=== PATIENT | female | born 1925 | race Caucasian/White ===

== ENCOUNTER 2016-07-21 09:55 | Emergency (ER) | payer MEDICARE ==
[2016-07-21] MEDS ORDERED: SODIUM CHLORIDE 0.9% 1,000 ML IV STA (10:49)
--- NOTE | 2016-07-21 10:53 | ED ---
General Adult HPI <Irwin Mccann - Last Filed: 07/21/16 13:49> - General Source: patient, RN notes reviewed Mode of arrival: wheelchair Limitations: physical limitation <Jovana Larios - Last Filed: 07/21/16 18:44> - General Chief complaint: Fall Stated complaint: weakness Time Seen by Provider: 07/21/16 10:05 - History of Present Illness Initial comments: Patient is a 89-year-old female since emergency room for evaluation of fall. Patient's daughter is present with patient. Patient's daughter states that patient is been very unsteady over the past 2-3 weeks. Patient's daughter states that patient did fall backwards yesterday and hit her head. Patient denies feeling dizzy lightheaded before the incident. Patient states she is randomly felt backwards. Patient states she did hit the back of her head. Patient denies loss of consciousness. Patient denies any current headache today. Patient's daughter states they called patient's primary care provider and they were advised to come to the emergency room to be further evaluated. Patient states she has a history of [place] about 9 years ago and history of a stroke about 3 years ago. Patient denies any residual symptoms from stroke. Patient denies any current increasing weakness or unilateral weakness. Patient denies paresthesias. Patient denies headache, dizziness, neck pain, changes in vision, ear pain, ringing in ears, chest pain, shortness of breath, nausea, vomiting, abdominal pain, fevers, chills, pain or burning during urination, trouble urinating or blood in urine. Patient denies any current symptoms at the moment. Patient denies smoking, drinking or illicit drug use. Patient denies any new medications. (Jovana Larios) - Related Data Home Medications Medication Instructions Recorded Confirmed Aspirin 81 mg PO HS 08/31/15 07/21/16 Atorvastatin [Lipitor] 40 mg PO HS 08/31/15 07/21/16 Jagdishacidoph,Marco B.lactis 1 cap PO DAILY 08/31/15 07/21/16 [Probiotic] Brimonidine Tartrate/Timolol 1 drop BOTH EYES AC-BID 09/01/15 07/21/16 [Combigan 0.2%-0.5% Eye Drops] Latanoprost [Xalatan 0.005%] 1 drop BOTH EYES HS 09/01/15 07/21/16 Biotin 5 mg PO DAILY@1200 07/21/16 07/21/16 Brinzolamide [Azopt 1% Ophth Susp] 1 drop RIGHT EYE BID 07/21/16 07/21/16 Cholecalciferol (Vitamin D3) 2,000 unit PO AC-TID 07/21/16 07/21/16 [Vitamin D3] Cyanocobalamin (Vitamin B-12) 3,000 mcg PO DAILY 07/21/16 07/21/16 [Vitamin B-12] Docusate [Colace] 100 mg PO AC-BID 07/21/16 07/21/16 Ferrous Sulfate [Feosol] 325 mg PO AC-BID 07/21/16 07/21/16 Hydrochlorothiazide 25 mg PO DAILY 07/21/16 07/21/16 [Hydrochlorothiazide] Lisinopril [Zestril] 10 mg PO AC-BID 07/21/16 07/21/16 cloNIDine HCL [Catapres] 0.1 mg PO TID 07/21/16 07/21/16 hydrALAZINE HCL [Apresoline] 100 mg PO TID 07/21/16 07/21/16 Previous Rx's Medication Instructions Recorded Insulin Glargine,Hum.rec.anlog 18 unit SQ HS #0 09/27/15 [Lantus Solostar] amLODIPine [Norvasc] 10 mg PO HS tab 09/27/15 Cephalexin [Keflex] 500 mg PO Q6HR 7 Days 07/21/16 Allergies Allergy/AdvReac Type Severity Reaction Status Date / Time Sulfa (Sulfonamide Allergy Rash/Hives Verified 07/21/16 11:14 Antibiotics) Review of Systems ROS Other: All systems not noted in ROS Statement are negative. <Irwin Mccann - Last Filed: 07/21/16 13:49> ROS Other: All systems not noted in ROS Statement are negative. <Jovana Larios - Last Filed: 07/21/16 18:44> ROS Statement: Those systems with pertinent positive or pertinent negative responses have been documented in the HPI. 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,URINARY TRACT INFECTION Last Myocardial Infarction Date:: 2008 History of Any Multi-Drug Resistant Organisms: None Reported Past Surgical History: Bladder Surgery, Bowel Resection, Coronary Bypass/CABG, Joint Replacement, Tubal Ligation Additional Past Surgical History / Comment(s): LEFT LEG SURGERY -TIBIA AND KNEE , TOTAL LEFT KNEE, CATARACT SURGERY- BILATERAL ,BMT, PARATHYROID,BLADDER SURGERY X3 (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) Past Anesthesia/Blood Transfusion Reactions: No Reported Reaction Past Psychological History: No Psychological Hx Reported Smoking Status: Never smoker Past Alcohol Use History: None Reported Past Drug Use History: None Reported - Past Family History Daughter(s) Family Medical History: Cancer Additional Family Medical History / Comment(s): BREAST CANCER <Jovana Larios - Last Filed: 07/21/16 18:44> General Exam <Irwin Mccann - Last Filed: 07/21/16 13:49> Limitations: physical limitation General appearance: alert, in no apparent distress Head exam: Present: atraumatic, normocephalic, normal inspection Eye exam: Present: normal appearance, PERRL, EOMI Pupils: Present: normal accommodation ENT exam: Present: normal exam, mucous membranes moist, TM's normal bilaterally , normal external ear exam Neck exam: Present: normal inspection, full ROM. Absent: tenderness, lymphadenopathy Respiratory exam: Present: normal lung sounds bilaterally. Absent: respiratory distress Cardiovascular Exam: Present: regular rate, normal rhythm, normal heart sounds GI/Abdominal exam: Present: soft, normal bowel sounds. Absent: distended, tenderness, guarding, rebound, rigid Extremities exam: Present: normal inspection Back exam: Present: normal inspection Neurological exam: Present: alert, oriented X3, CN II-XII intact Expanded Patient oriented to: Present: person, place, time Speech: Present: fluid speech Cranial nerves: EOM's Intact: Normal, Facial Sensation: Normal Sensory exam: Upper Extremity Light Touch: Normal, Lower Extremity Light Touch: Normal Motor strength exam: RUE: 5, LUE: 5, RLE: 5, LLE: 5 Eye Response: (4) open spontaneously Motor Response: (6) obeys commands Verbal Response: (5) oriented Psychiatric exam: Present: normal affect, normal mood Skin exam: Present: warm, dry, normal color, other (Abrasion from dog scratching her left leg over anterior reed). Absent: rash <Jovana Larios - Last Filed: 07/21/16 18:44> - General Exam Comments Initial Comments: Sitting in exam room, no acute distress. (Jovana Larios) Course <Irwin Mccann - Last Filed: 07/21/16 13:49> <Jovana Larios - Last Filed: 07/21/16 18:44> Vital Signs 07/21/16 07/21/16 09:57 14:03 Temperature 97.9 F 97.1 F L Pulse Rate 52 L 46 L Respiratory 16 18 Rate Blood Pressure 177/78 191/79 O2 Sat by Pulse 98 99 Oximetry - Reevaluation(s) Reevaluation #1: 07/21/16 13:49 I did personally do a [id number] evaluation the patient did discuss findings with her and her family members. He does demonstrate evidence of dehydration as well as a urinary tract infection she also has a wound on her left leg is slowly healing from an abrasion she received from her dog when it jumped up on her. She is awake alert oriented 3 no acute distress. Dry oral mucosa. Left lower extremity demonstrates a healing wound with some minimal erythema about the edges. Is approximately 2.5 cm diameter. Patient will be placed on a structure increase fluids and antibiotics. I do agree with the assessment and plan. (Irwin Mccann) Medical Decision Making - Lab Data Result diagrams: 07/21/16 10:13 07/21/16 10:13 <Irwin Mccann - Last Filed: 07/21/16 13:49> - Lab Data Result diagrams: 07/21/16 10:13 07/21/16 10:13 <Jovana Larios - Last Filed: 07/21/16 18:44> - Lab Data Lab Results 07/21/16 07/21/16 07/21/16 Range/Units 10:13 10:13 10:13 WBC 5.3 (3.8-10.6) k/uL RBC 3.41 L (3.80-5.40) m/uL Hgb 10.8 L (11.4-16.0) gm/dL Hct 32.8 L (34.0-46.0) % MCV 96.3 (80.0-100.0) fL MCH 31.6 (25.0-35.0) pg MCHC 32.8 (31.0-37.0) g/dL RDW 13.0 (11.5-15.5) % Plt Count 182 (150-450) k/uL Neutrophils % 68 % Lymphocytes % 19 % Monocytes % 7 % Eosinophils % 3 % Basophils % 1 % Neutrophils # 3.6 (1.3-7.7) k/uL Lymphocytes # 1.0 (1.0-4.8) k/uL Monocytes # 0.4 (0-1.0) k/uL Eosinophils # 0.1 (0-0.7) k/uL Basophils # 0.0 (0-0.2) k/uL PT (9.0-12.0) sec INR (<1.1) APTT (22.0-30.0) sec Sodium 139 (137-145) mmol/L Potassium 5.0 (3.5-5.1) mmol/L Chloride 105 (98-107) mmol/L Carbon Dioxide 25 (22-30) mmol/L Anion Gap 9 mmol/L BUN 51 H (7-17) mg/dL Creatinine 1.52 H (0.52-1.04) mg/dL Est GFR (MDRD) Af Amer 39 (>60 ml/min/1.73 sqM) Est GFR (MDRD) Non-Af 32 (>60 ml/min/1.73 sqM) Glucose 148 H (74-99) mg/dL Calcium 10.3 H (8.4-10.2) mg/dL Magnesium 2.2 (1.6-2.3) mg/dL Total Bilirubin 0.6 (0.2-1.3) mg/dL AST 22 (14-36) U/L ALT 27 (9-52) U/L Alkaline Phosphatase 77 (38-126) U/L Total Creatine Kinase 81 (30-135) U/L CK-MB (CK-2) 0.3 (0.0-2.4) ng/mL CK-MB (CK-2) Rel Index 0.4 Troponin I <0.012 (0.000-0.034) ng/mL Total Protein 6.5 (6.3-8.2) g/dL Albumin 3.6 (3.5-5.0) g/dL Urine Color Urine Appearance (Clear) Urine pH (5.0-8.0) Ur Specific [place] (1.001-1.035) Urine Protein (Negative) Urine Glucose (UA) (Negative) Urine Ketones (Negative) Urine Blood (Negative) Urine Nitrite (Negative) Urine Bilirubin (Negative) Urine Urobilinogen (<2.0) mg/dL Ur Leukocyte Esterase (Negative) Urine RBC (0-5) /hpf Urine WBC (0-5) /hpf Ur Squamous Epith Cells (0-4) /hpf Urine Bacteria (None) /hpf Hyaline Casts (0-2) /lpf Urine Mucus (None) /hpf 07/21/16 07/21/16 Range/Units 10:13 11:09 WBC (3.8-10.6) k/uL RBC (3.80-5.40) m/uL Hgb (11.4-16.0) gm/dL Hct (34.0-46.0) % MCV (80.0-100.0) fL MCH (25.0-35.0) pg MCHC (31.0-37.0) g/dL RDW (11.5-15.5) % Plt Count (150-450) k/uL Neutrophils % % Lymphocytes % % Monocytes % % Eosinophils % % Basophils % % Neutrophils # (1.3-7.7) k/uL Lymphocytes # (1.0-4.8) k/uL Monocytes # (0-1.0) k/uL Eosinophils # (0-0.7) k/uL Basophils # (0-0.2) k/uL PT 9.7 (9.0-12.0) sec INR 0.9 (<1.1) APTT 22.2 (22.0-30.0) sec Sodium (137-145) mmol/L Potassium (3.5-5.1) mmol/L Chloride (98-107) mmol/L Carbon Dioxide (22-30) mmol/L Anion Gap mmol/L BUN (7-17) mg/dL Creatinine (0.52-1.04) mg/dL Est GFR (MDRD) Af Amer (>60 ml/min/1.73 sqM) Est GFR (MDRD) Non-Af (>60 ml/min/1.73 sqM) Glucose (74-99) mg/dL Calcium (8.4-10.2) mg/dL Magnesium (1.6-2.3) mg/dL Total Bilirubin (0.2-1.3) mg/dL AST (14-36) U/L ALT (9-52) U/L Alkaline Phosphatase (38-126) U/L Total Creatine Kinase (30-135) U/L CK-MB (CK-2) (0.0-2.4) ng/mL CK-MB (CK-2) Rel Index Troponin I (0.000-0.034) ng/mL Total Protein (6.3-8.2) g/dL Albumin (3.5-5.0) g/dL Urine Color Yellow Urine Appearance Cloudy H (Clear) Urine pH 5.5 (5.0-8.0) Ur Specific [place] 1.011 (1.001-1.035) Urine Protein 2+ H (Negative) Urine Glucose (UA) Negative (Negative) Urine Ketones Negative (Negative) Urine Blood Negative (Negative) Urine Nitrite Positive H (Negative) Urine Bilirubin Negative (Negative) Urine Urobilinogen <2.0 (<2.0) mg/dL Ur Leukocyte Esterase Negative (Negative) Urine RBC 2 (0-5) /hpf Urine WBC 5 (0-5) /hpf Ur Squamous Epith Cells 2 (0-4) /hpf Urine Bacteria Moderate H (None) /hpf Hyaline Casts 1 (0-2) /lpf Urine Mucus Rare H (None) /hpf Disposition <Irwin Mccann - Last Filed: 07/21/16 13:49> Time of Disposition: 13:39 <Jovana Larois - Last Filed: 07/21/16 18:44> Clinical Impression: Urinary tract infection, Fall Disposition: HOME SELF-CARE Condition: Good Instructions: Urinary Tract Infection in Women (ED), Fall Prevention for Older Adults (ED) Additional Instructions: Take antibiotics as directed. Drink plenty of water. Please follow up with primary care provider in 24-48 hours for reevaluation. If any new symptom arises or symptoms worsen, return to ER as soon as possible. Prescriptions: Cephalexin [Keflex] 500 mg PO Q6HR 7 Days Referrals: Doug Mcmillan DO [Primary Care Provider] - 1-2 days
[2016-07-21 11:08] LABS: Basophils % (A) 1 %; CH 32.3; CHCM 33.7; Eosinophils # (A) 0.1 k/uL (0-0.7); Eosinophils % (A) 3 %; HCT 32.8 % (34.0-46.0); HDW 2.54; HGB 10.8 gm/dL (11.4-16.0); Luc # (Auto) 0.14; Luc % (Auto) 3; Lymphocytes % (A) 19 %; MCH 31.6 pg (25.0-35.0); MCHC 32.8 g/dL (31.0-37.0); MCV 96.3 fL (80.0-100.0); Mean Platelet Volume 7.6; Monocytes # (A) 0.4 k/uL (0-1.0); Monocytes % (A) 7 %; Neutrophils # (A) 3.6 k/uL (1.3-7.7); Neutrophils % (A) 68 %; RBC 3.41 m/uL (3.80-5.40); WBC 5.3 k/uL (3.8-10.6); WBC (Perox) 5.61
[2016-07-21 11:26] LABS: INR 0.9 (<1.1); Partial Thromboplastin Time 22.2 sec (22.0-30.0); Prothrombin Time 9.7 sec (9.0-12.0)
[2016-07-21 11:29] LABS: Calcium 10.3 mg/dL (8.4-10.2); Magnesium 2.2 mg/dL (1.6-2.3); Total Bilirubin 0.6 mg/dL (0.2-1.3); Total Protein 6.5 g/dL (6.3-8.2)
[2016-07-21 11:35] LABS: Creatine Kinase 81 U/L (30-135)
[2016-07-21 11:47] LABS: Creatine Kinase MB 0.3 ng/mL (0.0-2.4); Troponin I <0.012 ng/mL (0.000-0.034)
[2016-07-21 12:02] LABS: Appearance,Urine Cloudy (Clear); Bacteria,Urine Moderate /hpf; Bilirubin,Urine Negative (Negative); Glucose,Urine (UA) Negative (Negative); Ketones,Urine Negative (Negative); Leukocyte Esterase,Urine Negative (Negative); Mucus,Urine Rare /hpf; Nitrite,Urine Positive (Negative); PH, Urine 5.5 (5.0-8.0); Particle Count 49718; Protein,Urine 2+ (Negative); RBC,Urine 2 /hpf (0-5); Specific Gravity,Urine 1.011 (1.001-1.035); Squamous Epithelial Cell,Urine 2 /hpf (0-4); UA Billing (MACRO vs. MICRO) MICRO; Urobilinogen,Urine <2.0 mg/dL (<2.0); WBC,Urine 5 /hpf (0-5)
--- NOTE | 2016-07-21 12:05 | CT ---
EXAMINATION TYPE: CT brain arcadio ware DATE OF EXAM: 07/21/2016 COMPARISON: NONE HISTORY: [place] CT DLP: 1364.[address] of the brain was performed. The ventricles, basal cisterns and sulci overlying the cerebral convexities demonstrate mild enlargem ent. There is no evidence for intracranial hemorrhage or sulcal effacement. There is decreased attenuatio n about the periventricular white matter and deep white matter of both cerebral hemispheres, compatib le with chronic small vessel ischemia. No mass effects are seen. If symptoms persist consider MRI. Osseous calvarium is intact. Complete opacification left maxillary sinus with internal hyperdensity seen and calcification. IMPRESSION: 1. Age related atrophic and chronic small vessel ischemic change without acute intracranial process seen at this time. CT Cervical Spine: Unenhanced CT of the cervical spine was performed with bone and soft tissue window settings submitted . Coronal and sagittal reconstruction is obtained. There is normal alignment and prevertebral soft tissues. No evidence for acute cervical fracture . Scattered degenerative disc disease and spondylosis. Biapical scarring. Thyroid nodularity seen. At heromatous change of the carotid vessels. IMPRESSION: 1. No evidence for acute fracture or subluxation of the cervical spine.
[2016-07-21 14:06] VITALS: BP 191/79; PULSE 46; RESP 18; TEMP 97.1
== END 2016-07-21 14:08 | disposition home or self-care (01) ==
LOC: EC 09:55
DX: S81.802A Unspecified open wound, left lower leg, initial encounter (principal); N39.0 Urinary tract infection, site not specified; I25.10 Atherosclerotic heart disease of native coronary artery without angina pectoris; E78.5 Hyperlipidemia, unspecified; I10 Essential (primary) hypertension; I25.2 Old myocardial infarction; M19.90 Unspecified osteoarthritis, unspecified site; Z79.82 Long term (current) use of aspirin; Z79.899 Other long term (current) drug therapy; Z88.2 Allergy status to sulfonamides; Z86.69 Personal history of other diseases of the nervous system and sense organs; W01.10XA Fall on same level from slipping, tripping and stumbling with subsequent striking against unspecified object, initial encounter
CPT/HCPCS: 99284; 96365; 96361 ×3; 36415; 93005; 80053; 82550; 82553; 83735; 84484; 85025; 85610; 85730; 81001; 72125; 70450; J0696

== ENCOUNTER → 2017-04-25 | Outpatient (CLI) | payer MEDICARE ==
[2017-04-25 17:44] LABS: HCT 32.1 % (34.0-46.0); HGB 10.5 gm/dL (11.4-16.0); MCH 30.7 pg (25.0-35.0); MCHC 32.6 g/dL (31.0-37.0); MCV 93.9 fL (80.0-100.0); Mean Platelet Volume 7.7; Platelet Count 182 k/uL (150-450); RBC 3.42 m/uL (3.80-5.40); RDW 13.1 % (11.5-15.5); WBC 6.9 k/uL (3.8-10.6)
[2017-04-25 18:21] LABS: Albumin 3.6 g/dL (3.5-5.0); Calcium 10.4 mg/dL (8.4-10.2); Potassium 4.3 mmol/L (3.5-5.1); Total Bilirubin 0.2 mg/dL (0.2-1.3); Total Protein 6.4 g/dL (6.3-8.2)
== END | disposition home or self-care (01) ==
LOC: LABWHC1 17:16
PROVIDERS: ATTEND Internal Medicine Interventional Cardiology
DX: I10 Essential (primary) hypertension (principal); Z95.1 Presence of aortocoronary bypass graft
CPT/HCPCS: 36415; 80053; 85027

== ENCOUNTER 2017-08-09 17:06 | Inpatient (IN) | payer MEDICARE ==
[2017-08-09] MEDS ORDERED: DIPH,PERTUS(ACELL)TETVAC-LF 0.5 ML VIAL IM ONE (18:17)
[2017-08-09] MEDS ORDERED: ONDANSETRON 4 MG/2 ML VIAL IVP STA (18:17)
[2017-08-09 18:22] LABS: Basophils % (A) 0 %; Eosinophils # (A) 0.1 k/uL (0-0.7); Eosinophils % (A) 1 %; HCT 31.8 % (34.0-46.0); HGB 10.4 gm/dL (11.4-16.0); Lymphocytes # (A) 1.1 k/uL (1.0-4.8); Lymphocytes % (A) 6 %; MCH 30.9 pg (25.0-35.0); MCHC 32.9 g/dL (31.0-37.0); Mean Platelet Volume 7.4; Monocytes # (A) 0.9 k/uL (0-1.0); Monocytes % (A) 5 %; Neutrophils # (A) 16.4 k/uL (1.3-7.7); Neutrophils % (A) 87 %; Platelet Count 151 k/uL (150-450); RBC 3.38 m/uL (3.80-5.40); RDW 13.4 % (11.5-15.5); WBC 18.8 k/uL (3.8-10.6)
--- NOTE | 2017-08-09 18:26 | ED ---
Fever HPI - General Chief Complaint: Fever Stated Complaint: POSS INFECTION IN LEFT LEG Time Seen by Provider: 08/09/17 17:58 Source: patient, RN notes reviewed Mode of arrival: wheelchair Limitations: no limitations - History of Present Illness Initial Comments: 89-year-old female presented emergency Department chief complaint of left leg pain, swelling or redness. Patient states that she woke up today with a fever and the pain to her leg. She did admit that she was at by a cat on Sunday. Patient states that she believes her tetanus was updated approximate 7 years ago. Patient states that she has not taken any recent, Motrin for fever. She states her leg is severely painful. Patient states pain radiates up. Patient admits being a diabetic she admits to current nausea but denies any chest pain, shortness breath, headache or dizziness. - Related Data Home Medications Medication Instructions Recorded Confirmed Aspirin 81 mg PO HS 08/31/15 08/09/17 Atorvastatin [Lipitor] 40 mg PO HS 08/31/15 08/09/17 Brimonidine Tartrate/Timolol 1 drop BOTH EYES AC-BID 09/01/15 08/09/17 [Combigan 0.2%-0.5% Eye Drops] Latanoprost [Xalatan 0.005%] 1 drop BOTH EYES HS 09/01/15 08/09/17 Brinzolamide [Azopt 1% Ophth Susp] 1 drop BOTH EYES BID 07/21/16 08/09/17 Cholecalciferol (Vitamin D3) 2,000 unit PO AC-TID 07/21/16 08/09/17 [Vitamin D3] Cyanocobalamin (Vitamin B-12) 1,000 mcg PO DAILY 07/21/16 08/09/17 [Vitamin B-12] Docusate [Colace] 100 mg PO AC-BID 07/21/16 08/09/17 Ferrous Sulfate [Feosol] 325 mg PO AC-BID 07/21/16 08/09/17 cloNIDine HCL [Catapres] 0.1 mg PO BID 07/21/16 08/09/17 hydrALAZINE HCL [Apresoline] 100 mg PO BID@08,12 07/21/16 08/09/17 Chlorthalidone 25 mg PO DAILY 08/09/17 08/09/17 Insulin Glargine,Hum.rec.anlog 14 unit SQ HS 08/09/17 08/09/17 [Lantus Solostar] Isosorbide Mononitrate ER [Imdur] 30 mg PO DAILY 08/09/17 08/09/17 Ketorolac Tromethamine [Acular 1 drop BOTH EYES TID 08/09/17 08/09/17 0.5%] Lisinopril [Zestril] 20 mg PO BID 08/09/17 08/09/17 Pantoprazole [Protonix] 40 mg PO DAILY 08/09/17 08/09/17 sitaGLIPtin [Januvia] 25 mg PO DAILY 08/09/17 08/09/17 Previous Rx's Medication Instructions Recorded amLODIPine [Norvasc] 10 mg PO HS tab 09/27/15 Allergies Allergy/AdvReac Type Severity Reaction Status Date / Time Sulfa (Sulfonamide Allergy Rash/Hives Verified 08/09/17 18:44 Antibiotics) Review of Systems ROS Statement: Those systems with pertinent positive or pertinent negative responses have been documented in the HPI. ROS Other: All systems not noted in ROS Statement are negative. 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, KIDNEY INSUFFICENCY,NI[place]OLSKI LEFT EAR,URINARY TRACT INFECTION Last Myocardial Infarction Date:: 2008 History of Any Multi-Drug Resistant Organisms: None Reported Past Surgical History: Bladder Surgery, Bowel Resection, Coronary Bypass/CABG, Joint Replacement, Tubal Ligation Additional Past Surgical History / Comment(s): LEFT LEG SURGERY -TIBIA AND KNEE , TOTAL LEFT KNEE, CATARACT SURGERY- BILATERAL ,BMT, PARATHYROID,BLADDER SURGERY X3 (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 Absent: respiratory distress, wheezes, rales, rhonchi, stridor Cardiovascular Exam: Present: regular rate, normal rhythm, normal heart sounds. Absent: systolic murmur, diastolic murmur, rubs, gallop, clicks Extremities exam: Present: other (Left lower extremity there is erythema from her ankle to her knee there are some areas of ecchymosis no leg is moderately tender with palpation pulses are equal bilaterally there is warmth the left leg) Skin exam: Present: warm, dry Course Vital Signs 08/09/17 17:27 Temperature 99.7 F H Pulse Rate 93 Respiratory 18 Rate Blood Pressure 157/71 O2 Sat by Pulse 98 Oximetry Medical Decision Making - Medical Decision Making 89-year-old female presents emergency from for left leg pain, swelling and redness. Patient has infected leg secondary to Light. Patient will be admitted to the hospital on Zosyn and vancomycin. Patient's tetanus was updated. Laboratory did reveal leukocytosis x-ray does not reveal any gas formation. - Lab Data Result diagrams: 08/09/17 18:13 08/09/17 18:13 Lab Results 08/09/17 08/09/17 08/09/17 Range/Units 18:13 18:13 18:13 WBC 18.8 H (3.8-10.6) k/uL RBC 3.38 L (3.80-5.40) m/uL Hgb 10.4 L (11.4-16.0) gm/dL Hct 31.8 L (34.0-46.0) % MCV 94.0 (80.0-100.0) fL MCH 30.9 (25.0-35.0) pg MCHC 32.9 (31.0-37.0) g/dL RDW 13.4 (11.5-15.5) % Plt Count 151 (150-450) k/uL Neutrophils % 87 % Lymphocytes % 6 % Monocytes % 5 % Eosinophils % 1 % Basophils % 0 % Neutrophils # 16.4 H (1.3-7.7) k/uL Lymphocytes # 1.1 (1.0-4.8) k/uL Monocytes # 0.9 (0-1.0) k/uL Eosinophils # 0.1 (0-0.7) k/uL Basophils # 0.0 (0-0.2) k/uL Sodium 134 L (137-145) mmol/L Potassium 4.4 (3.5-5.1) mmol/L Chloride 100 (98-107) mmol/L Carbon Dioxide 23 (22-30) mmol/L Anion Gap 11 mmol/L BUN 54 H (7-17) mg/dL Creatinine 2.30 H (0.52-1.04) mg/dL Est GFR (CKD-EPI)AfAm 21 (>60 ml/min/1.73 sqM) Est GFR (CKD-EPI)NonAf 18 (>60 ml/min/1.73 sqM) Glucose 279 H (74-99) mg/dL Plasma Lactic Acid Wilian 1.7 (0.7-2.0) mmol/L Calcium 10.4 H (8.4-10.2) mg/dL Total Bilirubin 0.5 (0.2-1.3) mg/dL AST 18 (14-36) U/L ALT 27 (9-52) U/L Alkaline Phosphatase 64 (38-126) U/L Total Protein 5.7 L (6.3-8.2) g/dL Albumin 3.3 L (3.5-5.0) g/dL Disposition Clinical Impression: Left leg cellulitis, Infected cat bite Disposition: ADMITTED IP TO THIS HOSP Condition: Stable Referrals: Hortencia Strong MD [Primary Care Provider] - 1-2 days
[2017-08-09] MEDS ORDERED: ACETAMINOPHEN TAB 325 MG TAB PO STA (18:38)
[2017-08-09 18:39] LABS: Albumin 3.3 g/dL (3.5-5.0); Calcium 10.4 mg/dL (8.4-10.2); Potassium 4.4 mmol/L (3.5-5.1); Total Bilirubin 0.5 mg/dL (0.2-1.3); Total Protein 5.7 g/dL (6.3-8.2)
[2017-08-09] MEDS ORDERED: PIPERACILLIN-TAZOBACTAM 3.375 GM in DEXTROSE/WATER 1 50ML.BAG IVPB STA (19:00)
--- NOTE | 2017-08-09 19:05 | XR ---
EXAMINATION TYPE: XR tibia fibula LT DATE OF EXAM: 08/09/2017 COMPARISON: NONE HISTORY: Leg redness and swelling TECHNIQUE: 4 views FINDINGS: There is a left knee prosthesis. Ankle mortise is anatomic. I see no fracture nor dislocati on. There is a plantar calcaneal spur. There is vascular calcification. IMPRESSION: No acute abnormality of the left tibia and fibula.
[2017-08-09] MEDS ORDERED: VANCOMYCIN IV PER PHARMACY 1 EACH MISC MISCELLANE PRN (19:11)
[2017-08-09] MEDS ORDERED: VANCOMYCIN 1,250 MG in SODIUM CHLORIDE 0.9% 250 ML IVPB STA (19:18)
[2017-08-09] MEDS ORDERED: ACETAMINOPHEN TAB 325 MG TAB PO PRN (19:22)
[2017-08-09] MEDS ORDERED: ONDANSETRON 4 MG/2 ML VIAL IVP PRN (19:22)
[2017-08-09] MEDS ORDERED: NALOXONE 0.4 MG/ML 1 ML VIAL IV PRN (19:22)
[2017-08-09 21:03] LABS: Glucose,Whole Blood 246 mg/dL (75-99)
[2017-08-09 21:20] VITALS: BMI 24.0
[2017-08-09] MEDS: ASPIRIN 81 MG PO SCH (22:27)
[2017-08-09] MEDS: amLODIPine 10 MG TAB PO SCH (22:28)
[2017-08-09] MEDS: ATORVASTATIN 40 MG TAB PO SCH (22:28)
[2017-08-09] MEDS: cloNIDine HCL 0.1 MG TAB PO SCH (22:28)
[2017-08-09] MEDS: INSULIN DETEMIR 100 UNIT/ML 10 ML VIAL SQ SCH (22:28)
[2017-08-09] MEDS: LISINOPRIL 20 MG TAB PO SCH (22:28)
[2017-08-09] MEDS: LATANOPROST 0.005% OPHTH DROPS 2.5 ML BTL BOTH EYES SCH (22:29)
[2017-08-09] MEDS: DORZOLAMIDE HCL 2% DROPS 10 ML BTL BOTH EYES SCH (22:30)
[2017-08-09 22:45] LABS: Glucose,Whole Blood 284 mg/dL (75-99)
[2017-08-09] MEDS ORDERED: HYDROcodone/APAP 5-325MG 1 EACH TAB PO PRN (23:16)
[2017-08-09] MEDS ORDERED: ALPRAZolam 0.25 MG TAB PO PRN (23:16)
[2017-08-09] MEDS: INSULIN ASPART 100 UNIT/ML 1 ML 10 ML VIAL SQ SCH (23:36)
[2017-08-09] MEDS: AMPICILLIN-SULBACTAM 3 GM in SODIUM CHLORIDE 0.9% 100 ML IVPB SCH (23:59)
[2017-08-09] MEDS: MELATONIN 3 MG TABLET PO SCH (23:59)
[2017-08-09] MEDS: KETOROLAC 0.5% OPHTH DROPS 5 ML BTL BOTH EYES SCH (23:59)
[2017-08-10] MEDS ORDERED: PIPERACILLIN-TAZOBACTAM 3.375 GM in DEXTROSE/WATER 1 50ML.BAG IVPB SCH (03:00)
[2017-08-10 06:07] LABS: Glucose,Whole Blood 67 mg/dL (75-99)
--- NOTE | 2017-08-10 06:14 | HP ---
HISTORY AND PHYSICAL CHIEF COMPLAINTS: Pain and swelling of the left leg. HISTORY OF PRESENT ILLNESS: This 89-year-old woman with a past medical history of CAD, CHF, CVA, TIA, diabetes mellitus type 2, hearing hypertension, hyperlipidemia, being followed by primary physician in the [place] area was bitten by her own cat on Sunday on the left leg. The patient had increasing pain and swelling and patient came to [facility] and admitted for further evaluation. X-rays are normal. There is history of some fever. Otherwise no rigors, chills. No history of headache, loss of consciousness, seizures. PAST MEDICAL HISTORY: CAD, CHF, CVA, TIA, diabetes mellitus, hypertension, hyperlipidemia, history of bladder surgery. MEDICATIONS: Medications prior to admission include home medications are: 1. Nitrofurantoin 100 mg p.o. b.i.d. 2. Januvia 25 mg p.o. daily. 3. Apresoline 100 mg p.o. b.i.d. 4. Catapres 0.1 mg p.o. b.i.d. 5. Norvasc 10 mg at bedtime. 6. Protonix 40 mg p.o. daily. 7. Zestril 20 mg p.o. b.i.d. 8. Xalatan 0.005% 1 drop both eyes at bedtime. 9. Acular 0.5 one drop both eyes t.i.d. 10.Imdur 30 mg p.o. daily. 11.Insulin Lantus 14 units subcutaneously at bedtime. 12.Iron sulfate 325 mg p.o. b.i.d. 13.Colace 100 mg p.o. b.i.d. 14.B12, 1000 mcg p.o. daily. 15.Vitamin D3, 2000 t.i.d. 16.Chlorthalidone 25 mg p.o. daily. 17.Azopt 1% 1 drop b.i.d. 18.Combigan eyedrops 1 drop b.i.d. 19.Lipitor 40 mg at bedtime. 20.Aspirin 81 mg at bedtime. ALLERGIES: SULFA. FAMILY HISTORY: History of breast cancer in the family. SOCIAL HISTORY: No history of smoking. No history of alcohol intake. REVIEW OF SYSTEMS: ENT: ntd. CARDIOVASCULAR SYSTEM: No angina. RESPIRATORY SYSTEM: No cough or hemoptysis. GI: No nausea or vomiting. : No dysuria. NERVOUS SYSTEM: As mentioned earlier. ALLERGIES/IMMUNOLOGY: No asthma or hayfever. MUSCULOSKELETAL: As mentioned earlier. HEMATOLOGY/ONCOLOGY: No history of anemia. ENDOCRINE: Diabetes mellitus. CONSTITUTIONAL: As mentioned earlier. DERMATOLOGY: Negative. RHEUMATOLOGY: Negative. PSYCHIATRY: As mentioned earlier. PHYSICAL EXAMINATION: The patient is alert and oriented x3. Pulse is 87, blood pressure 105/53, respiration 18, temperature 100.1, pulse ox 97% on room air. HEENT: Conjunctivae normal. Oral mucosa moist. Neck is no jugular venous distention. No carotid bruit. No lymph node enlargement. CARDIOVASCULAR: S1 and S2 muffled. No S3 or S4. RESPIRATORY: Breath sounds diminished in the bases. A few scattered rhonchi. No crackles. ABDOMEN: Soft, nontender. No mass palpable. LEGS: Left leg pain and swelling and tenderness present in the left leg area, mainly in the reed area, mid part and lower part. NERVOUS SYSTEM: Higher function as mentioned earlier. Moves all 4 limbs. No focal motor or sensory deficits. LYMPHATICS: No lymphadenopathy of the neck, axillae or groin. SKIN: No ulcer, rash or bleeding. LABS: WBC 18.8, hemoglobin 10.4. Creatinine is 2.3. Accu-Cheks 264. ASSESSMENT: 1. Acute cellulitis left lower leg secondary to cat bite. 2. Chronic kidney disease stage III. 3. Diabetes mellitus type 2. 4. Increased WBC. 5. Anemia. 6. Coronary artery disease. 7. History of congestive heart failure. 8. Cerebrovascular accident, transient ischemic attack. 9. History of hearing disorder. 10.Hypertension. 11.Hyperlipidemia. 12.History of myocardial infarction. 13.History of degenerative joint disease. 14.History of glaucoma and macular degeneration. 15.History of bladder surgery. 16.Coronary artery disease, coronary artery bypass grafting. 17.Degenerative joint disease. RECOMMENDATIONS AND DISCUSSION: This 89-year-old woman who presented with multiple complex medical issues, we will monitor the patient closely. We will initiate broad-spectrum IV antibiotics including Unasyn, vancomycin. Otherwise, infectious disease evaluation, orthopedic evaluation. Resume the home medications. Monitor blood sugars closely, insulin to scale. I would also recommend to avoid nephrotoxic medications. I would recommend a consultation with aviation [employer] also and repeat labs also will be requested. As mentioned earlier cultures have been ordered requested and DVT prophylaxis. Home medications will be continued and further recommendations to follow. MMODL / IJN: [id number] / CHANTEL
[2017-08-10 06:49] LABS: Glucose,Whole Blood 100 mg/dL (75-99)
[2017-08-10] MEDS: INSULIN ASPART 100 UNIT/ML 1 ML 10 ML VIAL SQ SCH ×4 (08:00→22:02)
[2017-08-10] MEDS: HEPARIN SODIUM,PORCINE 5,000 UNIT/ML 1 ML VIAL SQ SCH ×2 (08:01→22:02)
[2017-08-10] MEDS: PANTOPRAZOLE 40 MG TABLET PO SCH (08:01)
[2017-08-10] MEDS: cloNIDine HCL 0.1 MG TAB PO SCH ×2 (08:02→22:01)
[2017-08-10] MEDS: LINAGLIPTIN 5 MG TABLET PO SCH (08:02)
[2017-08-10] MEDS: KETOROLAC 0.5% OPHTH DROPS 5 ML BTL BOTH EYES SCH ×3 (08:02→22:03)
[2017-08-10] MEDS: DORZOLAMIDE HCL 2% DROPS 10 ML BTL BOTH EYES SCH ×2 (08:02→22:02)
[2017-08-10] MEDS: hydrALAZINE HCL 50 MG TAB PO SCH ×2 (08:02→12:32)
[2017-08-10] MEDS: LISINOPRIL 20 MG TAB PO SCH (08:02)
[2017-08-10] MEDS: CHOLECALCIFEROL 1,000 UNIT TAB PO SCH ×3 (08:02→17:38)
[2017-08-10] MEDS: FERROUS SULFATE 325 MG TAB PO SCH ×2 (08:02→17:38)
[2017-08-10] MEDS: ISOSORBIDE MONONITRATE ER 30 MG TAB.ER.24H PO SCH (08:02)
[2017-08-10] MEDS: CYANOCOBALAMIN 500 MCG TAB PO SCH (08:02)
[2017-08-10] MEDS: DOCUSATE 100 MG CAP PO SCH ×2 (08:02→17:38)
[2017-08-10] MEDS: TIMOLOL 0.5% OPHTH DROPS 5 ML BTL BOTH EYES SCH ×2 (08:03→17:38)
[2017-08-10] MEDS: BRIMONIDINE TARTRATE 0.2% DROPS 5 ML BTL BOTH EYES SCH ×2 (08:03→17:38)
[2017-08-10] MEDS ORDERED: CHLORTHALIDONE 25 MG TAB PO SCH (09:00)
[2017-08-10 09:49] LABS: Basophils % (A) 0 %; Eosinophils # (A) 0.1 k/uL (0-0.7); Eosinophils % (A) 1 %; HCT 27.7 % (34.0-46.0); Lymphocytes # (A) 0.8 k/uL (1.0-4.8); Lymphocytes % (A) 8 %; MCH 30.3 pg (25.0-35.0); MCHC 31.7 g/dL (31.0-37.0); MCV 95.5 fL (80.0-100.0); Mean Platelet Volume 7.5; Monocytes # (A) 0.6 k/uL (0-1.0); Monocytes % (A) 6 %; Neutrophils # (A) 8.7 k/uL (1.3-7.7); Neutrophils % (A) 84 %; Platelet Count 119 k/uL (150-450); RDW 13.5 % (11.5-15.5); WBC 10.4 k/uL (3.8-10.6)
[2017-08-10 09:58] LABS: HGB 8.8 gm/dL (11.4-16.0)
[2017-08-10 10:01] LABS: Calcium 9.6 mg/dL (8.4-10.2); Potassium 4.4 mmol/L (3.5-5.1)
[2017-08-10] MEDS: AMPICILLIN-SULBACTAM 3 GM in SODIUM CHLORIDE 0.9% 100 ML IVPB SCH ×2 (11:20→23:40)
[2017-08-10] MEDS ORDERED: VANCOMYCIN 1,250 MG in SODIUM CHLORIDE 0.9% 250 ML IVPB ONE (12:00)
[2017-08-10 12:18] LABS: Glucose,Whole Blood 140 mg/dL (75-99)
[2017-08-10] MEDS: SODIUM CHLORIDE 0.9% 1,000 ML IV SCH (12:32)
--- NOTE | 2017-08-10 13:05 | CONS ---
CONSULTATION REASON FOR CONSULT: Renal failure. HISTORY OF PRESENT ILLNESS: The patient is an 89-year-old female who was admitted to the hospital with complaints of pain, swelling and redness on her left leg after a cat bite. The patient states that she has underlying chronic kidney disease and follows with a stream control officer out of town. She is not sure of her baseline renal function. The patient denies use of any nonsteroidal anti-inflammatory agents recently. She denied any fever, chills, nausea, vomiting, abdominal pain. She has had low appetite. Serum creatinine was 2.3 mg/dL yesterday. Today, it is at 3. The patient has been voiding. Her blood pressure is on the lower side with systolic of 112 mmHg. The patient is on ALEXANDRA inhibitors in the form of the Zestril. She is also on thiazide diuretics. PAST MEDICAL HISTORY: Hypertension, chronic kidney disease, gastroesophageal reflux disease, type 2 diabetes, hypertension, glaucoma, CVA, TIA, CHF, ejection fraction not known. MEDICATIONS: Medications at home prior to admission included Januvia, nitrofurantoin, hydralazine, clonidine, Norvasc, Protonix, Zestril, Imdur, insulin, iron, Colace, chlorthalidone, Lipitor, aspirin. ALLERGIES: Allergies include SULFA. SOCIAL HISTORY: Negative for smoking, drug abuse or alcohol abuse. The patient is fairly independent. REVIEW OF SYSTEMS: As per HPI. Other systems negative. PHYSICAL EXAMINATION: On examination, patient is comfortable, awake, alert, oriented x3, not in any acute distress. Blood pressure is 143/54, heart rate 51 per minute. She is afebrile. EXAMINATION OF THE HEART: S1, S2. EXAMINATION OF THE LUNGS: Bilateral breath sounds are heard. Abdomen is soft, nontender. Examination of lower extremities shows mild erythema in the left leg at the site of the wound. Chronic skin changes are noted. No significant edema is noted. LABS: Labs show sodium 133, potassium 4.4, chloride 100, BUN 62, serum creatinine 3.0, hemoglobin 8.8 g/dL. ASSESSMENT: 1. Acute kidney injury secondary to underlying infection and some degree of hypoperfusion. The renal function has worsened since yesterday. I will discontinue the lisinopril for now, especially as the blood pressure is on the lower side. I will also hold off on the thiazide diuretics. We will repeat labs in a.m. We will also check postvoid scan to rule out any underlying urine . The patient is maintained on vancomycin and with her recent worsening in renal function I would avoid further use of vancomycin. 2. Cat scratch, wound from cat scratch, maintained on vancomycin, currently improved. 3. Chronic kidney disease, baseline renal function not known. The patient does follow up with a stream control officer out of town. We do have previous creatinines of 1.5 mg/dL in July of 2016 and prior to that we have a creatinine of 1.1 and 1.2 in 2016. PLAN: Plan is check urinalysis, DC ALEXANDRA inhibitors, hold off on the diuretics as well. Maintain gentle IV hydration. Recommend discontinuation of vancomycin and repeat labs in a.m. Check postvoid scan, rule out urine retention. Thank you for this consultation. We will continue to follow the patient with you during her hospitalization. MMSTEPHANIEL / APPLEN: [id number] /
--- NOTE | 2017-08-10 15:13 | P.PN ---
Subjective Progress Note Date: 08/10/17 Progress note being dictated for Dr. Watkins. Interval history: This is an 89-year-old female admitted with acute cellulitis left lower leg secondary to Right, chronic kidney disease and multiple other medical issues. Maintained Unasyn. But sugars better controlled. Worsening renal function, creatinine up to 3, Juan Manuel inhibitor and thiazide diuretic discontinued. Afebrile , T-max 100.1. Sodium 133. Objective - Vital Signs Vital signs: Vital Signs Temp 97.8 F 08/10/17 14:10 Pulse 50 L 08/10/17 14:10 Resp 18 08/10/17 14:10 BP 127/44 08/10/17 14:10 Pulse Ox 97 08/10/17 14:10 Intake & Output 08/09/17 08/10/17 08/10/17 18:59 06:59 18:59 Intake Total 600 480 Balance 600 480 Weight 62.596 kg 61.689 kg Intake: Oral 600 480 Other: # Voids 2 1 # Bowel Movements 0 - Exam PHYSICAL EXAM: VITAL SIGNS: As above GENERAL: Sitting up in bed, no acute distress HEENT: Conjunctivae normal. eyes normal. NECK: No JVD. No thyroid enlargement. No LNs CARDIOVASCULAR: S1, S2 muffled. No murmur RESPIRATION: Breath sounds diminished in the bases. Occasional rhonchi, no crackles. No bronchial breathing. ABDOMEN: Soft, nontender . No guarding. no masses palpable.Bowel sounds heard. LEGS: Left lower leg edema, tenderness, pain improving PSYCHIATRY: Alert and oriented -3, mood and affect normal. NERVOUS SYSTEM: Cranial N 2-12 grossly normal. Moves all 4 limbs. Diffuse weakness No focal deficits. Skin: no ulcer no rash Lymphatic system. No LN neck axilla or groin. - Labs CBC & Chem 7: 08/10/17 09:18 08/10/17 09:18 Labs: Abnormal Lab Results - Last 24 Hours (Table) 08/09/17 08/09/17 08/09/17 Range/Units 18:13 18:13 20:51 WBC 18.8 H (3.8-10.6) k/uL RBC 3.38 L (3.80-5.40) m/uL Hgb 10.4 L (11.4-16.0) gm/dL Hct 31.8 L (34.0-46.0) % Plt Count (150-450) k/uL Neutrophils # 16.4 H (1.3-7.7) k/uL Lymphocytes # (1.0-4.8) k/uL Sodium 134 L (137-145) mmol/L BUN 54 H (7-17) mg/dL Creatinine 2.30 H (0.52-1.04) mg/dL Glucose 279 H (74-99) mg/dL POC Glucose (mg/dL) 246 H (75-99) mg/dL Calcium 10.4 H (8.4-10.2) mg/dL Total Protein 5.7 L (6.3-8.2) g/dL Albumin 3.3 L (3.5-5.0) g/dL 08/09/17 08/10/17 08/10/17 Range/Units 22:31 05:48 06:41 WBC (3.8-10.6) k/uL RBC (3.80-5.40) m/uL Hgb (11.4-16.0) gm/dL Hct (34.0-46.0) % Plt Count (150-450) k/uL Neutrophils # (1.3-7.7) k/uL Lymphocytes # (1.0-4.8) k/uL Sodium (137-145) mmol/L BUN (7-17) mg/dL Creatinine (0.52-1.04) mg/dL Glucose (74-99) mg/dL POC Glucose (mg/dL) 284 H 67 L 100 H (75-99) mg/dL Calcium (8.4-10.2) mg/dL Total Protein (6.3-8.2) g/dL Albumin (3.5-5.0) g/dL 08/10/17 08/10/17 08/10/17 Range/Units 09:18 09:18 12:00 WBC (3.8-10.6) k/uL RBC 2.90 L (3.80-5.40) m/uL Hgb 8.8 L D (11.4-16.0) gm/dL Hct 27.7 L (34.0-46.0) % Plt Count 119 L (150-450) k/uL Neutrophils # 8.7 H (1.3-7.7) k/uL Lymphocytes # 0.8 L (1.0-4.8) k/uL Sodium 133 L (137-145) mmol/L BUN 62 H (7-17) mg/dL Creatinine 3.00 H (0.52-1.04) mg/dL Glucose 172 H (74-99) mg/dL POC Glucose (mg/dL) 140 H (75-99) mg/dL Calcium (8.4-10.2) mg/dL Total Protein (6.3-8.2) g/dL Albumin (3.5-5.0) g/dL Assessment and Plan Assessment: 1. Acute cellulitis left lower leg secondary to cat bite, improving 2. Acute on Chronic kidney disease, stage III. Acute secondary to hypoperfusion, infection 3. Diabetes mellitus type II 4. CAD Plan: Continue on current medication regime ,monitoring and symptomatic treatment. Maintain IV antibiotics of Unasyn, gentle IV fluid hydration. Uric acid level, UA ordered. Orthopedic and infectious disease consult in place with recommendations pending. Close monitoring of renal function and electrolytes with repeat labs ordered for a.m. Nephrology's recommendations noted and appreciated. The impression and plan of care has been dictated as directed. : I performed a history and examination of this patient, discussed the same with the dictator. I agree with the dictator's note ,documented as a scribe. Any additional findings or plans will be noted.
[2017-08-10 17:16] LABS: Glucose,Whole Blood 141 mg/dL (75-99)
[2017-08-10 17:50] LABS: Hemoglobin A1C 6.7 % (4.0-6.0)
[2017-08-10 20:59] LABS: Glucose,Whole Blood 205 mg/dL (75-99)
[2017-08-10] MEDS: ATORVASTATIN 40 MG TAB PO SCH (22:01)
[2017-08-10] MEDS: ASPIRIN 81 MG PO SCH (22:01)
[2017-08-10] MEDS: amLODIPine 10 MG TAB PO SCH (22:01)
[2017-08-10] MEDS: MELATONIN 3 MG TABLET PO SCH (22:03)
[2017-08-10] MEDS: LATANOPROST 0.005% OPHTH DROPS 2.5 ML BTL BOTH EYES SCH (22:03)
[2017-08-10] MEDS: INSULIN DETEMIR 100 UNIT/ML 10 ML VIAL SQ SCH (22:06)
[2017-08-10] MEDS ORDERED: INSULIN ASPART 100 UNIT/ML 1 ML 10 ML VIAL SQ SCH (22:57)
--- NOTE | 2017-08-11 06:39 | CONS ---
CONSULTATION DATE OF SERVICE: 08/10/2017. REASON FOR CONSULTATION: Left leg cat bite cellulitis. HISTORY OF PRESENT ILLNESS: The patient is an 89-year-old female who has been bitten by her cat on Sunday on her left leg which was an unprovoked attack. However the patient did mention that the cat is well known for biting as she has been biting the dog all the time. The patient denies any significant bleeding from her left leg. However, the patient woke up yesterday morning with more swelling and redness to the left leg. The patient also complaining of pain in the left leg more of a throbbing in nature, 4 to 5/10, and no radiation with no skin breakdown. No drainage. The patient did have a fever with chills. With these symptoms, the patient presented to the [facility] ER. The patient did have x-rays of the tibia and fibula that was negative for any acute abnormality. The patient did have a fever of 100.1, and her white count is elevated 18.8. The patient has been started on vancomycin and Unasyn and admitted to the hospital. Infectious Disease was consulted for further recommendation regarding antibiotic therapy. REVIEW OF SYSTEMS: CONSTITUTIONAL: Positive for weakness along with the fever. Eyes no complaint. ENT no complaint. Respiratory no complaint. Cardiovascular no complaint. Genitourinary no complaint. Gastrointestinal: No complaint. Musculoskeletal as per HPI. Integumentary as per HPI. Psychological no complaint. Endocrine no complaint. Neurological no complaint. PAST MEDICAL HISTORY: Significant for coronary artery disease, CVA, TIA, diabetes mellitus, hyperlipidemia, hypertension, myocardial infarction, osteoarthritis, urinary tract infection. PAST SURGICAL HISTORY: Significant for bladder surgery, bowel resection, coronary artery bypass grafting, tubal ligation, left leg surgery. SOCIAL HISTORY: No history of smoking, drinking or drug use. FAMILY HISTORY: Daughter with history of breast cancer. ALLERGIES: SULFA. MEDICATION: Medications include the patient is currently on Tylenol, [place], Xanax, Norvasc, Unasyn 3 g q.12h. she is on aspirin, Lipitor, vitamin D3, Catapres, vitamin B12, Colace, , iron sulfate, heparin, hydralazine, NovoLog, Levemir, Imdur, Tradjenta, Melatonin, Zofran, Protonix, Timoptic, and vancomycin pharmacy to dose. EXAMINATION: Her blood pressure is 118/53 with a pulse of 63, temperature 99.5. She is 98% on room air. General description is an elderly female lying in bed in no distress. No tachypnea or accessory muscles of respiration use. HEENT: Examination shows pallor. No scleral icterus. Oral mucous membranes dry. No pharyngeal erythema or thrush. Neck trachea central. No thyromegaly. Lungs unlabored breathing. Clear to auscultation anteriorly, no wheeze or crackles. Heart: S1, S2. Regular rate and rhythm. ABDOMEN: Soft, nontender, no guarding or rigidity. Extremities: Left leg with swelling, minimal redness, slightly warm to touch and tender to touch as well, but no fluctuation or induration or any drainage. Neurological: Patient is awake, alert, oriented x3. Mood and affect normal. LABS: Hemoglobin is 10.4, white count of 18.8. BUN of 32, creatinine 3. Electrolytes have been normal. X-ray was negative for any fracture. Blood culture has been negative so far. DIAGNOSTIC IMPRESSION AND PLAN: 1. Patient with acute left lower extremity cellulitis from a cat bite. The likely organism needs covered would be the oral marcie of the cat including .. 2. Patient who does have adrenal insufficiency and high risk of nephrotoxicity from the vancomycin. PLAN: 1. We will keep the patient on Unasyn 3 g q.12h with dose creatinine clearance. 2. Discontinue vancomycin. 3. Jovanny the area of redness. 4. We will follow up on clinical condition to further adjust medication if needed. Thank you for this consultation. We will follow the patient along with you. MMODL / IJN: [id number] /
[2017-08-11 07:29] LABS: Glucose,Whole Blood 137 mg/dL (75-99)
[2017-08-11 08:13] LABS: Basophils % (A) 0 %; Eosinophils # (A) 0.1 k/uL (0-0.7); Eosinophils % (A) 2 %; HCT 25.9 % (34.0-46.0); HGB 8.5 gm/dL (11.4-16.0); Lymphocytes # (A) 1.1 k/uL (1.0-4.8); Lymphocytes % (A) 15 %; MCHC 32.7 g/dL (31.0-37.0); MCV 94.9 fL (80.0-100.0); Mean Platelet Volume 8.4; Monocytes # (A) 0.5 k/uL (0-1.0); Monocytes % (A) 7 %; Neutrophils # (A) 5.3 k/uL (1.3-7.7); Neutrophils % (A) 72 %; Platelet Count 113 k/uL (150-450); RBC 2.73 m/uL (3.80-5.40); RDW 13.2 % (11.5-15.5); WBC 7.4 k/uL (3.8-10.6)
[2017-08-11] MEDS: LINAGLIPTIN 5 MG TABLET PO SCH (08:48)
[2017-08-11] MEDS: CYANOCOBALAMIN 500 MCG TAB PO SCH (08:48)
[2017-08-11] MEDS: ISOSORBIDE MONONITRATE ER 30 MG TAB.ER.24H PO SCH (08:48)
[2017-08-11] MEDS: PANTOPRAZOLE 40 MG TABLET PO SCH (08:48)
[2017-08-11] MEDS: HEPARIN SODIUM,PORCINE 5,000 UNIT/ML 1 ML VIAL SQ SCH ×2 (08:48→21:55)
[2017-08-11] MEDS: CHOLECALCIFEROL 1,000 UNIT TAB PO SCH ×3 (08:49→17:00)
[2017-08-11] MEDS: hydrALAZINE HCL 50 MG TAB PO SCH ×2 (08:49→13:37)
[2017-08-11] MEDS: BRIMONIDINE TARTRATE 0.2% DROPS 5 ML BTL BOTH EYES SCH ×2 (08:49→17:00)
[2017-08-11] MEDS: INSULIN ASPART 100 UNIT/ML 1 ML 10 ML VIAL SQ SCH ×4 (08:49→21:55)
[2017-08-11] MEDS: DOCUSATE 100 MG CAP PO SCH ×2 (08:49→17:00)
[2017-08-11] MEDS: cloNIDine HCL 0.1 MG TAB PO SCH ×2 (08:49→21:55)
[2017-08-11] MEDS: FERROUS SULFATE 325 MG TAB PO SCH ×2 (08:49→17:00)
[2017-08-11] MEDS: TIMOLOL 0.5% OPHTH DROPS 5 ML BTL BOTH EYES SCH ×2 (08:50→18:12)
[2017-08-11] MEDS: DORZOLAMIDE HCL 2% DROPS 10 ML BTL BOTH EYES SCH ×2 (08:50→21:55)
[2017-08-11] MEDS: KETOROLAC 0.5% OPHTH DROPS 5 ML BTL BOTH EYES SCH ×3 (08:50→21:57)
[2017-08-11 09:17] LABS: Calcium 9.3 mg/dL (8.4-10.2); Potassium 4.6 mmol/L (3.5-5.1)
--- NOTE | 2017-08-11 10:21 | P.CNOR ---
History of Present Illness - [facility] Consult date: 08/11/17 Consult reason: other (Possible cellulitis left lower extremity status post cat bite) History of present illness: Patient is a very pleasant 89-year-old female who is in a [facility] of years. She has had total joint replacements with Dr. Shalom garcia in the recent past and has actually seen him just last week in regards to follow up for her treatment of arthritic issues at her lower extremity. Apparently the patient was bitten by her cat about 5 days ago. She started to develop some redness and some swelling around the site which was traveling up her leg and she became concerned and presented to the hospital. She has been treated with medications antibiotics and feels that she is doing much better since her hospitalization. She denies any fevers chills. She denies any new pain in her hips knees or ankles. She denies any other injury. Review of Systems Denies new problems at her hips or knees. She is able to mobilize and ambulate. She denies any fevers chills. 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 History of total knee replacement the left and total hip joint replacements as well as femur fracture with surgical fixation Last Myocardial Infarction Date:: 2008 History of Any Multi-Drug Resistant Organisms: None Reported Past Surgical History: Bladder Surgery, Bowel Resection, Coronary Bypass/CABG, Joint Replacement, Tubal Ligation Additional Past Surgical History / Comment(s): LEFT LEG SURGERY -TIBIA AND KNEE , TOTAL LEFT KNEE, CATARACT SURGERY- BILATERAL ,BMT, PARATHYROID,BLADDER SURGERY X3 (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) Past Anesthesia/Blood Transfusion Reactions: No Reported Reaction Past Psychological History: No Psychological Hx Reported Smoking Status: Never smoker Past Alcohol Use History: None Reported Past Drug Use History: None Reported - Past Family History Daughter(s) Family Medical History: Cancer Additional Family Medical History / Comment(s): BREAST CANCER Medications and Allergies Home Medications Medication Instructions Recorded Confirmed Type Aspirin 81 mg PO HS 08/31/15 08/09/17 History Atorvastatin [Lipitor] 40 mg PO HS 08/31/15 08/09/17 History Brimonidine Tartrate/Timolol 1 drop BOTH EYES AC-BID 09/01/15 08/09/17 History [Combigan 0.2%-0.5% Eye Drops] Latanoprost [Xalatan 0.005%] 1 drop BOTH EYES HS 09/01/15 08/09/17 History amLODIPine [Norvasc] 10 mg PO HS tab 09/27/15 08/09/17 Rx Brinzolamide [Azopt 1% Ophth Susp] 1 drop BOTH EYES BID 07/21/16 08/09/17 History Cholecalciferol (Vitamin D3) 2,000 unit PO AC-TID 07/21/16 08/09/17 History [Vitamin D3] Cyanocobalamin (Vitamin B-12) 1,000 mcg PO DAILY 07/21/16 08/09/17 History [Vitamin B-12] Docusate [Colace] 100 mg PO AC-BID 07/21/16 08/09/17 History Ferrous Sulfate [Feosol] 325 mg PO AC-BID 07/21/16 08/09/17 History cloNIDine HCL [Catapres] 0.1 mg PO BID 07/21/16 08/09/17 History hydrALAZINE HCL [Apresoline] 100 mg PO BID@,12 07/21/16 08/09/17 History Chlorthalidone 25 mg PO DAILY 08/09/17 08/09/17 History Insulin Glargine,Hum.rec.anlog 14 unit SQ HS 08/09/17 08/09/17 History [Lantus Solostar] Isosorbide Mononitrate ER [Imdur] 30 mg PO DAILY 08/09/17 08/09/17 History Ketorolac Tromethamine [Acular 1 drop BOTH EYES TID 08/09/17 08/09/17 History 0.5%] Lisinopril [Zestril] 20 mg PO BID 08/09/17 08/09/17 History Nitrofurantoin Monohyd/M-Cryst 100 mg PO Q12HR 08/09/17 08/09/17 History [Macrobid] Pantoprazole [Protonix] 40 mg PO DAILY 08/09/17 08/09/17 History sitaGLIPtin [Januvia] 25 mg PO DAILY 08/09/17 08/09/17 History Allergies Allergy/AdvReac Type Severity Reaction Status Date / Time Sulfa (Sulfonamide Allergy Rash/Hives Verified 08/09/17 18:44 Antibiotics) Physical Examination Osteopathic Statement: *. No significant issues noted on an osteopathic structural exam other than those noted in the History and Physical/Consult. - Knee left Appearance: ecchymosis (Her knee and hip incisions are clear. There is no erythema there is no swelling at her knee or hip. There is no drainage. She has good motion at her hip and her knee on the left. She has some chronic hyperpigmentation at her left lower leg. There is no erythema. There is some superficial abrasions which seem to be the Bite areas. There is no streaking. There is no tenderness to palpation. There is no significant swelling. She has good motion ankle foot and toes. There is no fluid collection or abscess.) Results - Labs Labs: Abnormal Lab Results - Last 24 Hours (Table) 08/09/17 08/10/17 08/10/17 Range/Units 18:13 09:18 12:00 RBC (3.80-5.40) m/uL Hgb (11.4-16.0) gm/dL Hct (34.0-46.0) % Plt Count (150-450) k/uL Sodium (137-145) mmol/L BUN (7-17) mg/dL Creatinine (0.52-1.04) mg/dL Glucose (74-99) mg/dL POC Glucose (mg/dL) 140 H (75-99) mg/dL Hemoglobin A1c 6.7 H (4.0-6.0) % Uric Acid 8.0 H (3.7-7.4) mg/dL 08/10/17 08/10/17 08/11/17 Range/Units 17:14 20:50 07:18 RBC (3.80-5.40) m/uL Hgb (11.4-16.0) gm/dL Hct (34.0-46.0) % Plt Count (150-450) k/uL Sodium (137-145) mmol/L BUN (7-17) mg/dL Creatinine (0.52-1.04) mg/dL Glucose (74-99) mg/dL POC Glucose (mg/dL) 141 H 205 H 137 H (75-99) mg/dL Hemoglobin A1c (4.0-6.0) % Uric Acid (3.7-7.4) mg/dL 08/11/17 08/11/17 Range/Units 07:45 07:45 RBC 2.73 L (3.80-5.40) m/uL Hgb 8.5 L (11.4-16.0) gm/dL Hct 25.9 L (34.0-46.0) % Plt Count 113 L (150-450) k/uL Sodium 136 L (137-145) mmol/L BUN 69 H (7-17) mg/dL Creatinine 3.50 H (0.52-1.04) mg/dL Glucose 118 H (74-99) mg/dL POC Glucose (mg/dL) (75-99) mg/dL Hemoglobin A1c (4.0-6.0) % Uric Acid (3.7-7.4) mg/dL Microbiology - Last 24 Hours (Table) 08/09/17 18:13 Blood Culture - Preliminary Blood No Growth after 24 hours H & H 08/09/17 08/10/17 08/11/17 Range/Units 18:13 09:18 07:45 Hgb 10.4 L 8.8 L D 8.5 L (11.4-16.0) gm/dL Hct 31.8 L 27.7 L 25.9 L (34.0-46.0) % Result Diagrams: 08/11/17 07:45 08/11/17 07:45 - Diagnostic results Knee x-ray: report reviewed, image reviewed (X-rays of her left lower leg are reviewed as well as prior x-rays of her knee and hip from prior treatments. There is no evidence of any new fracture. The total knee replacement a left. She be stable and in good alignment and good position. 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 She does not seem to have involvement at her total hip or total knee replacements and there does not seem to be any severe bony involvement or deep tissue fluid collection. I do not think this requires any surgical intervention. She should continue her medication and antibiotics as per medicine. It is okay for her to be discharged from an orthopedic standpoint when she is stable with medicine service. Outpatient follow-up closely with Dr. Shalom Lugo who has seen her fairly recently and is very familiar with her history. I discussed this with her and she is agreeable. 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 She does not seem to have involvement at her total hip or total knee replacements and there does not seem to be any severe bony involvement or deep tissue fluid collection. I do not think this requires any surgical intervention. She should continue her medication and antibiotics as per medicine. It is okay for her to be discharged from an orthopedic standpoint when she is stable with medicine service. Outpatient follow-up closely with Dr. Shalom Lugo who has seen her fairly recently and is very familiar with her history. I discussed this with her and she is agreeable.
[2017-08-11] MEDS: SODIUM CHLORIDE 0.9% 1,000 ML IV SCH (10:53)
[2017-08-11 12:01] LABS: Glucose,Whole Blood 194 mg/dL (75-99)
--- NOTE | 2017-08-11 12:51 | P.PN ---
Subjective Patient is seen in follow for acute kidney injury. Renal function is worsening with creatinine up to 3.5 today. Patient states she has been voiding but has noticed decrease in her urine output. No vomiting or diarrhea. Oral intake is good. Vancomycin was discontinued on August 10 and she is currently on Unasyn for cat bite. Vital signs are stable. General: The patient appeared well nourished and normally developed. HEENT: Head exam is unremarkable. Neck is without jugular venous distension. LUNGS: Lungs are clear to auscultation and percussion. Breath sounds decreased. HEART: Rate and Rhythm are regular. First and second heart sounds normal. No murmurs, rubs or gallops. ABDOMEN: Abdominal exam reveals normal bowel sounds. Non-tender and non- distended. No evidence of peritonitis. EXTREMITITES: No clubbing, cyanosis, or edema. Erythema noted. No obvious drainage. Objective - Vital Signs Vital signs: Vital Signs Temp 96.7 F L 08/11/17 05:35 Pulse 58 L 08/11/17 05:35 Resp 16 08/11/17 05:35 BP 165/73 08/11/17 05:35 Pulse Ox 96 08/11/17 05:35 Intake & Output 08/10/17 08/11/17 08/11/17 18:59 06:59 18:59 Intake Total 480 Balance 480 Weight 64 kg Intake: Oral 480 Other: # Voids 1 2 # Bowel Movements 0 - Labs CBC & Chem 7: 08/11/17 07:45 08/11/17 07:45 Labs: Abnormal Lab Results - Last 24 Hours (Table) 08/09/17 08/10/17 08/10/17 Range/Units 18:13 09:18 17:14 RBC (3.80-5.40) m/uL Hgb (11.4-16.0) gm/dL Hct (34.0-46.0) % Plt Count (150-450) k/uL Sodium (137-145) mmol/L BUN (7-17) mg/dL Creatinine (0.52-1.04) mg/dL Glucose (74-99) mg/dL POC Glucose (mg/dL) 141 H (75-99) mg/dL Hemoglobin A1c 6.7 H (4.0-6.0) % Uric Acid 8.0 H (3.7-7.4) mg/dL 08/10/17 08/11/17 08/11/17 Range/Units 20:50 07:18 07:45 RBC (3.80-5.40) m/uL Hgb (11.4-16.0) gm/dL Hct (34.0-46.0) % Plt Count (150-450) k/uL Sodium 136 L (137-145) mmol/L BUN 69 H (7-17) mg/dL Creatinine 3.50 H (0.52-1.04) mg/dL Glucose 118 H (74-99) mg/dL POC Glucose (mg/dL) 205 H 137 H (75-99) mg/dL Hemoglobin A1c (4.0-6.0) % Uric Acid (3.7-7.4) mg/dL 08/11/17 08/11/17 Range/Units 07:45 11:51 RBC 2.73 L (3.80-5.40) m/uL Hgb 8.5 L (11.4-16.0) gm/dL Hct 25.9 L (34.0-46.0) % Plt Count 113 L (150-450) k/uL Sodium (137-145) mmol/L BUN (7-17) mg/dL Creatinine (0.52-1.04) mg/dL Glucose (74-99) mg/dL POC Glucose (mg/dL) 194 H (75-99) mg/dL Hemoglobin A1c (4.0-6.0) % Uric Acid (3.7-7.4) mg/dL Microbiology - Last 24 Hours (Table) 08/09/17 18:13 Blood Culture - Preliminary Blood No Growth after 24 hours Assessment and Plan Plan: Assessment: 1. Acute kidney injury secondary to ATN secondary to infection and hemodynamic instability. Creatinine up to 3.5 today. Rule out ALLERGIC interstitial nephritis. Also rule out urinary retention. Vancomycin has been discontinued and the level was not high. 2. Chronic kidney disease. Patient follows with a disk sander out of town. Her creatinine since July 2016 has been in the range of 1.5-2.2. 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 3. Cat bite maintained on IV Unasyn. Infectious disease following. 4. Anemia of chronic kidney disease. Rule out iron deficiency. 5. Hypertension with chronic kidney disease. 6. Diabetes mellitus. Plan: Continue normal saline at 75 mL an hour. Check urine eosinophils. Await urinalysis. Check iron studies. Encourage oral intake. Avoid nephrotoxic agents and hypotensive episodes. Diuretics and ALEXANDRA inhibitor held. Repeat electrolytes in the morning. Check bladder scan to make sure no underlying urinary retention. Strict I's and O's.
[2017-08-11] MEDS: AMPICILLIN-SULBACTAM 3 GM in SODIUM CHLORIDE 0.9% 100 ML IVPB SCH ×2 (13:38→23:46)
[2017-08-11 15:34] LABS: Appearance,Urine Cloudy (Clear); Bacteria,Urine Rare /hpf; Bilirubin,Urine Negative (Negative); Blood,Urine Negative (Negative); Color,Urine Yellow; Glucose,Urine (UA) Negative (Negative); Ketones,Urine Negative (Negative); Leukocyte Esterase,Urine Negative (Negative); Mucus,Urine Rare /hpf; Nitrite,Urine Negative (Negative); Protein,Urine 1+ (Negative); Specific Gravity,Urine 1.012 (1.001-1.035); Squamous Epithelial Cell,Urine 7 /hpf (0-4); Urobilinogen,Urine <2.0 mg/dL (<2.0); WBC,Urine 4 /hpf (0-5)
[2017-08-11 16:16] LABS: Iron Saturation 7.89 (12.00-45.00)
[2017-08-11 17:04] LABS: Glucose,Whole Blood 163 mg/dL (75-99)
[2017-08-11 20:59] LABS: Glucose,Whole Blood 224 mg/dL (75-99)
--- NOTE | 2017-08-11 21:24 | PN ---
PROGRESS NOTE DATE OF SERVICE: 08/11/2017. INTERVAL HISTORY: This 89-year-old woman who was admitted with acute cellulitis of the left lower leg because of a cat bit is being closely monitored. No chest pain. No palpitations. No fever. The creatinine has worsened today. EXAM: Alert and oriented x3. Pulse 52, blood pressure 140/48, respirations 16, temperature 97.2, pulse ox 98% room air. HEENT: Conjunctivae normal. NECK: No jugular venous distention. CARDIOVASCULAR: S1, S2 muffled. RESPIRATORY: Breath sounds diminished in the bases. No rhonchi. No crackles. ABDOMEN: Soft, nontender. LEGS: Left leg cellulitis. NERVOUS SYSTEM: No focal deficits. LABS: WBC 7, hemoglobin is 8.4. ASSESSMENT: 1. Acute cellulitis of the left leg secondary to cat bite, improving. 2. Acute on chronic kidney disease stage 3. 3. Diabetes mellitus type 2. 4. History of coronary artery disease. RECOMMENDATIONS AND DISCUSSION: Recommend to continue current medical management and symptomatic treatment. Closely monitor. The creatinine is 3.5 today. We will avoid nephrotoxic medications. Will discontinue the vancomycin. Infectious Disease and Nephrology are also following the patient closely. MEDICATIONS: Reviewed, include: 1. Tylenol 650 every 6 hours p.r.n. 2. [place] 5 mg. 3. Xanax. 4. Norvasc. 5. Unasyn. 6. Aspirin. 7. Lipitor. 8. Alphagan. 9. Vitamin D3. 10.Catapres. 11.Colace. 12.Trusopt. 13.Apresoline. 14.NovoLog. 15.Levemir. 16.Imdur. 17.Xalatan. 18.Tradjenta. 19.Melatonin. 20.Narcan. 21.Zofran. 22.Timoptic. Will continue to monitor and continue the IV fluids, cautious hydration. Further recommendations to follow. Vancomycin level was 12.7. The patient's baseline creatinine was around between 1 and 1.5. See orders for further details. MMODL / IJN: [id number] /
[2017-08-11] MEDS: amLODIPine 10 MG TAB PO SCH (21:54)
[2017-08-11] MEDS: ASPIRIN 81 MG PO SCH (21:55)
[2017-08-11] MEDS: ATORVASTATIN 40 MG TAB PO SCH (21:55)
[2017-08-11] MEDS: MELATONIN 3 MG TABLET PO SCH (21:56)
[2017-08-11] MEDS: LATANOPROST 0.005% OPHTH DROPS 2.5 ML BTL BOTH EYES SCH (21:56)
[2017-08-11] MEDS: INSULIN DETEMIR 100 UNIT/ML 10 ML VIAL SQ SCH (21:56)
--- NOTE | 2017-08-11 23:15 | PN ---
PROGRESS NOTE DATE OF SERVICE: 08/11/2017. REASON FOR FOLLOWUP: Left leg cat bite cellulitis. INTERVAL HISTORY: The patient is afebrile. She is feeling as good as yesterday. Denies having any chest pain or shortness of breath or cough. No abdominal pain or any worsening pain to the left leg area. EXAMINATION: Blood pressure 144/48 with a pulse of 52, temperature 97.6. She is 98% on room air. General description is an elderly female lying in bed in no distress. RESPIRATORY SYSTEM: Unlabored breathing. Clear to auscultation anteriorly. HEART: S1, S2. Regular rate and rhythm. ABDOMEN: Soft. No tenderness. Left leg swelling and redness has decreased. LABS: Hemoglobin 8.5, white count 7.4. BUN of 69, creatinine 3.50. DIAGNOSTIC IMPRESSION AND PLAN: Patient with left leg cat bite cellulitis. The patient will still continue with Unasyn, waiting for the infection to improve with the plan to finish therapy with oral antibiotics. Continue with supportive care. MMODL / IJN: [id number] /
[2017-08-12] MEDS: SODIUM CHLORIDE 0.9% 1,000 ML IV SCH (05:39)
[2017-08-12 07:27] LABS: Glucose,Whole Blood 98 mg/dL (75-99)
[2017-08-12] MEDS: hydrALAZINE HCL 50 MG TAB PO SCH ×2 (09:13→12:29)
[2017-08-12] MEDS: ISOSORBIDE MONONITRATE ER 30 MG TAB.ER.24H PO SCH (09:13)
[2017-08-12] MEDS: cloNIDine HCL 0.1 MG TAB PO SCH ×2 (09:14→20:33)
[2017-08-12] MEDS: FERROUS SULFATE 325 MG TAB PO SCH ×2 (09:14→17:50)
[2017-08-12] MEDS: CYANOCOBALAMIN 500 MCG TAB PO SCH (09:14)
[2017-08-12] MEDS: DOCUSATE 100 MG CAP PO SCH ×2 (09:14→17:50)
[2017-08-12] MEDS: CHOLECALCIFEROL 1,000 UNIT TAB PO SCH ×3 (09:14→17:50)
[2017-08-12] MEDS: PANTOPRAZOLE 40 MG TABLET PO SCH (09:14)
[2017-08-12] MEDS: LINAGLIPTIN 5 MG TABLET PO SCH (09:14)
[2017-08-12] MEDS: HEPARIN SODIUM,PORCINE 5,000 UNIT/ML 1 ML VIAL SQ SCH ×2 (09:14→20:34)
[2017-08-12] MEDS: TIMOLOL 0.5% OPHTH DROPS 5 ML BTL BOTH EYES SCH ×2 (09:15→17:50)
[2017-08-12] MEDS: BRIMONIDINE TARTRATE 0.2% DROPS 5 ML BTL BOTH EYES SCH ×2 (09:15→17:49)
[2017-08-12] MEDS: DORZOLAMIDE HCL 2% DROPS 10 ML BTL BOTH EYES SCH ×2 (09:15→20:34)
[2017-08-12] MEDS: KETOROLAC 0.5% OPHTH DROPS 5 ML BTL BOTH EYES SCH ×3 (09:15→21:35)
[2017-08-12] MEDS: INSULIN ASPART 100 UNIT/ML 1 ML 10 ML VIAL SQ SCH ×4 (09:16→21:34)
[2017-08-12 11:39] LABS: Basophils % (A) 0 %; Eosinophils # (A) 0.1 k/uL (0-0.7); Eosinophils % (A) 2 %; HCT 27.2 % (34.0-46.0); HGB 8.8 gm/dL (11.4-16.0); Lymphocytes # (A) 0.9 k/uL (1.0-4.8); Lymphocytes % (A) 15 %; MCH 30.8 pg (25.0-35.0); MCHC 32.4 g/dL (31.0-37.0); MCV 95.1 fL (80.0-100.0); Mean Platelet Volume 7.3; Monocytes # (A) 0.4 k/uL (0-1.0); Monocytes % (A) 6 %; Neutrophils # (A) 4.2 k/uL (1.3-7.7); Neutrophils % (A) 72 %; Platelet Count 146 k/uL (150-450); RBC 2.86 m/uL (3.80-5.40); RDW 13.3 % (11.5-15.5); WBC 5.7 k/uL (3.8-10.6)
[2017-08-12 11:54] LABS: Glucose,Whole Blood 98 mg/dL (75-99)
[2017-08-12 12:01] LABS: Calcium 9.4 mg/dL (8.4-10.2); Potassium 4.9 mmol/L (3.5-5.1)
--- NOTE | 2017-08-12 12:12 | P.PN ---
Subjective Patient is seen in follow for acute kidney injury. Renal function was worsening with creatinine up to 3.5 yesterday - labs from today pending at this time. Patient states her urine output has improved significantly overnight. No vomiting or diarrhea. Oral intake is good. Vancomycin was discontinued on August 10 and she is currently on Unasyn for cat bite. Vital signs are stable. General: The patient appeared well nourished and normally developed. HEENT: Head exam is unremarkable. Neck is without jugular venous distension. LUNGS: Lungs are clear to auscultation and percussion. Breath sounds decreased. HEART: Rate and Rhythm are regular. First and second heart sounds normal. No murmurs, rubs or gallops. ABDOMEN: Abdominal exam reveals normal bowel sounds. Non-tender and non- distended. No evidence of peritonitis. EXTREMITITES: No clubbing, cyanosis, or edema. Erythema noted. No obvious drainage. Objective - Vital Signs Vital signs: Vital Signs Temp 97.9 F 08/12/17 05:45 Pulse 55 L 08/12/17 05:45 Resp 20 08/12/17 05:45 BP 133/47 08/12/17 05:45 Pulse Ox 96 08/12/17 05:45 Intake & Output 08/11/17 08/12/17 08/12/17 18:59 06:59 18:59 Intake Total 1400 Output Total 100 100 Balance 1300 -100 Weight 67 kg Intake: Intake, IV Titration 800 Amount Sodium Chloride 0.9% 1, 800 000 ml @ 50 mls/hr IV . Q20H JARETH Rx#:[id number] Oral 600 Output: Urine 100 Post Void Residual 100 Other: # Voids 2 3 - Labs CBC & Chem 7: 08/12/17 10:44 08/11/17 07:45 Labs: Abnormal Lab Results - Last 24 Hours (Table) 08/11/17 08/11/17 08/11/17 Range/Units 07:45 09:19 16:53 RBC (3.80-5.40) m/uL Hgb (11.4-16.0) gm/dL Hct (34.0-46.0) % Plt Count (150-450) k/uL Lymphocytes # (1.0-4.8) k/uL POC Glucose (mg/dL) 163 H (75-99) mg/dL Iron 15 L (50-170) ug/dL TIBC 190 L (228-460) ug/dL Iron Saturation 7.89 L (12.00-45.00) Urine Appearance Cloudy H (Clear) Urine Protein 1+ H (Negative) Ur Squamous Epith Cells 7 H (0-4) /hpf Urine Bacteria Rare H (None) /hpf Urine Mucus Rare H (None) /hpf 08/11/17 08/12/17 Range/Units 20:58 10:44 RBC 2.86 L (3.80-5.40) m/uL Hgb 8.8 L (11.4-16.0) gm/dL Hct 27.2 L (34.0-46.0) % Plt Count 146 L (150-450) k/uL Lymphocytes # 0.9 L (1.0-4.8) k/uL POC Glucose (mg/dL) 224 H (75-99) mg/dL Iron (50-170) ug/dL TIBC (228-460) ug/dL Iron Saturation (12.00-45.00) Urine Appearance (Clear) Urine Protein (Negative) Ur Squamous Epith Cells (0-4) /hpf Urine Bacteria (None) /hpf Urine Mucus (None) /hpf Microbiology - Last 24 Hours (Table) 08/09/17 18:13 Blood Culture - Preliminary Blood No Growth after 48 hours Assessment and Plan Plan: Assessment: 1. Acute kidney injury secondary to ATN secondary to infection and hemodynamic instability. Creatinine up to 3.5 as of yesterday - labs pending from today. Rule out ALLERGIC interstitial nephritis. No evidence of urinary retention. Vancomycin has been discontinued and the level was not high. 2. Chronic kidney disease. 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 Her creatinine since July 2016 has been in the range of 1.5-2.2. 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 3. Cat bite maintained on IV Unasyn. Infectious disease following. 4. Anemia of chronic kidney disease. Iron deficiency noted. 5. Hypertension with chronic kidney disease. Controlled. 6. Diabetes mellitus. Plan: Continue normal saline at 75 mL an hour. Follow-up urine eosinophils. Ferrlecit 125 mg IV daily for 3 days. First dose today. Encouraged oral intake. Avoid nephrotoxic agents and hypotensive episodes. Diuretics and ALEXANDRA inhibitor held. Repeat electrolytes in the morning. Strict I's and O's.
[2017-08-12] MEDS: AMPICILLIN-SULBACTAM 3 GM in SODIUM CHLORIDE 0.9% 100 ML IVPB SCH (12:30)
[2017-08-12] MEDS: SODIUM FERRIC GLUCONAT-SUCROSE 125 MG in SODIUM CHLORIDE 0.9% 100 ML IVPB SCH (14:00)
[2017-08-12 16:08] VITALS: RESP 16
[2017-08-12] MEDS ORDERED: hydrALAZINE HCL 20 MG/ML 1 ML VIAL IVP PRN (16:32)
[2017-08-12 17:16] LABS: Glucose,Whole Blood 185 mg/dL (75-99)
--- NOTE | 2017-08-12 19:37 | PN ---
PROGRESS NOTE DATE OF SERVICE: 08/13/2011 This 89-year-old woman is admitted with acute cellulitis secondary to cat bite is being closely monitored. Patient is not feeling well today according to her. The patient's creatinine is worse at 3.6, probably secondary to multifactorial. Orthopedic Surgery has also seen the patient. 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 The patient is on IV Unasyn. Multiple consultants are following the patient closely. The cultures are negative so far. The patient also has elevated blood pressure. PAST MEDICAL HISTORY: Reviewed. REVIEW OF SYSTEMS: CARDIOVASCULAR: No angina. RESPIRATORY: As mentioned earlier. GI: No nausea. : No dysuria. NERVOUS SYSTEM: No numbness or weakness. CURRENT MEDICATIONS: Current medications are reviewed and include: 1. Tylenol 650 q.6h p.r.n. 2. [place] 5 mg. 3. Xanax 0.5 t.i.d. 4. Norvasc 10 mg daily. 5. Unasyn 3 g IV b.i.d. 6. Aspirin 81 mg b.i.d. 7. Lipitor 40 mg q.h.s. 8. Alphagan eyedrops. 9. Vitamin D3 2000. 10.Catapres 0.1 b.i.d. 11.Vitamin B12 1000 mg b.i.d. 12.Colace 100 mg b.i.d. 13.Trusopt 1 b.i.d. 14.Iron sulfate 320 mg b.i.d. 15.Heparin 5000 subcu b.i.d. 16.Apresoline 500 mg b.i.d. 17.Levemir 40 units subcu q.h.s. 18.Imdur 30 mg daily. 19.1 drop both eyes. 20.Xalatan 0.05% 1 drop both eyes q.h.s. 21.Tradjenta 5 mg p.o. daily. 22.Melatonin 3 mg q.h.s. 23.Narcan 0.2 mg q.2h p.r.n. 24.Zofran 4 mg q.8h. 25.Protonix 40 mg b.i.d. p.r.n. 26.Timoptic 1 drop both eyes b.i.d. PHYSICAL EXAM: Patient is alert, oriented x3. Pulse 65, blood pressure 118/87, respiration 16, temperature 98.2, pulse ox 98% on room air. HEENT: Conjunctivae normal. Oral mucosa moist. NECK: No jugular venous distention. No carotid bruit. No lymph node enlargement. CARDIOVASCULAR: S1, S2. No S3, no S4. RESPIRATORY: Breath sounds diminished in the bases. A few scattered rhonchi. No crackles. ABDOMEN: Soft. LEGS: Left leg cellulitis. NERVOUS SYSTEM: No focal deficits. LABS: WBC 5.2, hemoglobin 8.8, creatinine 3.2. ASSESSMENT: 1. Acute cellulitis of the left leg secondary to cat bite. 2. Acute on chronic renal failure, possibly multifactorial including antibiotic induced allergic interstitial nephritis or prerenal factors. 3. Chronic kidney disease stage III. 4. Diabetes mellitus type 2. 5. History of coronary artery disease. 6. Decreased carbon dioxide. 7. Anemia normocytic, anemia of chronic disease. 8. NO CODE, NO CPR, NO VENT. RECOMMENDATIONS AND DISCUSSION: In this 89-year-old woman who presented with multiple complex medical issues, we will monitor the patient closely. Continue the current management and symptomatic treatment at this time. I recommend avoid nephrotoxic medication. Vancomycin has been stopped. Unasyn dose has been adjusted to twice daily. Closely monitor. Cautious IV fluids. Symptomatic treatment will be provided and monitor blood sugars closely. I would recommended p.r.n. hydralazine initiating along with Norvasc. Monitor blood pressure closely. Further recommendations to follow. MMODL / APPLEN: [id number] / MTDD
[2017-08-12] MEDS: ATORVASTATIN 40 MG TAB PO SCH (20:33)
[2017-08-12] MEDS: ASPIRIN 81 MG PO SCH (20:33)
[2017-08-12] MEDS: amLODIPine 10 MG TAB PO SCH (20:33)
[2017-08-12] MEDS: LATANOPROST 0.005% OPHTH DROPS 2.5 ML BTL BOTH EYES SCH (20:34)
[2017-08-12] MEDS: MELATONIN 3 MG TABLET PO SCH (20:34)
[2017-08-12 20:59] LABS: Glucose,Whole Blood 200 mg/dL (75-99)
[2017-08-12] MEDS: INSULIN DETEMIR 100 UNIT/ML 10 ML VIAL SQ SCH (21:34)
[2017-08-13] MEDS: AMPICILLIN-SULBACTAM 3 GM in SODIUM CHLORIDE 0.9% 100 ML IVPB SCH ×2 (00:14→11:05)
[2017-08-13] MEDS: SODIUM CHLORIDE 0.9% 1,000 ML IV SCH (00:16)
--- NOTE | 2017-08-13 00:21 | PN ---
PROGRESS NOTE DATE OF SERVICE: 08/12/2017. REASON FOR FOLLOWUP: Left flank and back cellulitis. INTERVAL HISTORY: The patient is afebrile. He is breathing comfortably. Denies having any chest pain or shortness of breath. No cough, abdominal pain, or any pain to the left leg area. EXAMINATION: Blood pressure is 135/50, pulse of 73, temperature 98.1, she is 97% on room air. GENERAL DESCRIPTION: The patient is an elderly female, lying in bed in no distress. RESPIRATORY SYSTEM: Unlabored breathing. Clear to auscultation anteriorly. HEART: S1, S2. Regular rate and rhythm. EXTREMITIES: Left leg swelling persists but improved. LABS: Hemoglobin is 8.8, white count 5.7, BUN of 62, creatinine 3.0. DIAGNOSTIC IMPRESSION AND PLAN: Patient with left leg cat bite cellulitis. Continue with the Unasyn and wait for kidney function to improve, with plan to finish therapy with oral Augmentin. Continue supportive care. MMODL / IJN: [id number] /
[2017-08-13] MEDS: INSULIN ASPART 100 UNIT/ML 1 ML 10 ML VIAL SQ SCH ×2 (07:51→12:32)
[2017-08-13 07:57] LABS: Glucose,Whole Blood 87 mg/dL (75-99)
[2017-08-13 07:57] LABS: Glucose,Whole Blood 67 mg/dL (75-99)
[2017-08-13] MEDS: BRIMONIDINE TARTRATE 0.2% DROPS 5 ML BTL BOTH EYES SCH (08:00)
[2017-08-13] MEDS: FERROUS SULFATE 325 MG TAB PO SCH (08:01)
[2017-08-13] MEDS: DOCUSATE 100 MG CAP PO SCH (08:01)
[2017-08-13] MEDS: PANTOPRAZOLE 40 MG TABLET PO SCH (08:01)
[2017-08-13] MEDS: CHOLECALCIFEROL 1,000 UNIT TAB PO SCH ×2 (08:01→11:05)
[2017-08-13] MEDS: cloNIDine HCL 0.1 MG TAB PO SCH (08:02)
[2017-08-13] MEDS: CYANOCOBALAMIN 500 MCG TAB PO SCH (08:02)
[2017-08-13] MEDS: TIMOLOL 0.5% OPHTH DROPS 5 ML BTL BOTH EYES SCH (08:02)
[2017-08-13] MEDS: hydrALAZINE HCL 50 MG TAB PO SCH ×2 (08:02→11:05)
[2017-08-13] MEDS: KETOROLAC 0.5% OPHTH DROPS 5 ML BTL BOTH EYES SCH ×2 (08:03→16:04)
[2017-08-13] MEDS: HEPARIN SODIUM,PORCINE 5,000 UNIT/ML 1 ML VIAL SQ SCH (08:03)
[2017-08-13] MEDS: ISOSORBIDE MONONITRATE ER 30 MG TAB.ER.24H PO SCH (08:03)
[2017-08-13] MEDS: LINAGLIPTIN 5 MG TABLET PO SCH (08:04)
[2017-08-13] MEDS: DORZOLAMIDE HCL 2% DROPS 10 ML BTL BOTH EYES SCH (08:09)
[2017-08-13 10:07] LABS: Basophils % (A) 1 %; Eosinophils # (A) 0.1 k/uL (0-0.7); Eosinophils % (A) 2 %; HGB 8.6 gm/dL (11.4-16.0); Lymphocytes # (A) 0.8 k/uL (1.0-4.8); Lymphocytes % (A) 14 %; MCH 30.3 pg (25.0-35.0); MCHC 31.9 g/dL (31.0-37.0); MCV 95.1 fL (80.0-100.0); Mean Platelet Volume 7.8; Monocytes # (A) 0.4 k/uL (0-1.0); Monocytes % (A) 7 %; Neutrophils # (A) 4.1 k/uL (1.3-7.7); Neutrophils % (A) 74 %; Platelet Count 152 k/uL (150-450); RBC 2.84 m/uL (3.80-5.40); RDW 13.1 % (11.5-15.5); WBC 5.6 k/uL (3.8-10.6)
[2017-08-13 10:33] LABS: Calcium 9.5 mg/dL (8.4-10.2); Potassium 5.1 mmol/L (3.5-5.1)
[2017-08-13 12:03] LABS: Glucose,Whole Blood 141 mg/dL (75-99)
[2017-08-13] MEDS: SODIUM FERRIC GLUCONAT-SUCROSE 125 MG in SODIUM CHLORIDE 0.9% 100 ML IVPB SCH (12:32)
--- NOTE | 2017-08-13 14:16 | PN ---
PROGRESS NOTE DATE OF SERVICE: 08/13/2017 REASON FOR FOLLOWUP: Left leg cat bite cellulitis. INTERVAL HISTORY: The patient is currently afebrile. She is breathing comfortably. She denies having any chest pain. No shortness of breath or cough. No abdominal pain. Overall, left leg swelling and redness has improved. PHYSICAL EXAMINATION: Her vital signs stable with a T-max of 98. General description is an elderly female, lying in bed in no distress. RESPIRATORY SYSTEM: Unlabored breathing, clear to auscultation anteriorly. HEART: S1, S2. Regular rate and rhythm. ABDOMEN: Soft, no tenderness. Left leg swelling has improved. LABS: Hemoglobin 8.1, white count of 5.6, BUN of 52, creatinine is 2.8. DIAGNOSTIC IMPRESSION AND PLAN: Patient with left leg cat bite cellulitis. Patient at this time will be able to finish therapy with oral Augmentin 500 twice a day for about a week. Scripts were sent to pharmacy with outpatient followup. Continue supportive care. MMODL / IJN: [id number] /
[2017-08-13 14:32] VITALS: BP 158/53; PULSE 50; TEMP 97.8
--- NOTE | 2017-08-13 16:08 | PN ---
PROGRESS NOTE The patient is seen for followup for acute kidney injury. He was admitted to the hospital with a cat bite on the leg. Serum creatinine peaked at 3.5. It is now on a downward trend and it was at 2.8 mg/dL today. The patient's vancomycin was discontinued. PHYSICAL EXAMINATION: Blood pressure is 128/70, heart rate 64 per minute. She is afebrile. Examination of the heart: S1 and S2. Examination of the lungs: Bilateral breath sounds are heard. Abdomen is soft, nontender. Examination lower extremity shows no significant edema. Redness on the left leg is now improved. LABS: Sodium 140, potassium 5.1, chloride 108, BUN 52, serum creatinine 2.82, hemoglobin 8.6 g/dL. ASSESSMENT: 1. Acute kidney injury, acute tubular necrosis secondary to sepsis, nonoliguric and currently improved. The patient can be discharged from nephrology standpoint, we will hold off on steroids for now. 2. Chronic kidney disease with baseline creatinine of 1.2. Follows with Nephrology out of town. 3. Cat bite on Unasyn. 4. Hypertension with CKD, currently controlled. 5. Type 2 diabetes. 6. Iron deficiency maintained on IV iron. 7. Anemia of chronic disease. PLAN: The patient is stable for discharge from Nephrology standpoint. She will need outpatient followup with repeat labs to be done in about one week's time. MMODL / IJN: [id number] /
--- NOTE | 2017-08-13 17:38 | DS ---
DISCHARGE SUMMARY FINAL DIAGNOSES: 1. Acute cellulitis of the left leg secondary to cat bite. 2. Acute on chronic renal failure, possibly multifactorial including antibiotics , possibly including allergic interstitial nephritis and prerenal factors also. 3. Chronic kidney disease stage III as baseline. 4. Diabetes mellitus type 2. 5. History of coronary artery disease. 6. Decreased CO2. 7. Anemia normocytic anemia of chronic disease. 8. NO CODE, NO CPR. DISCHARGE DISPOSITION: The patient is being discharged in stable condition with guarded prognosis. HISTORY OF PRESENT ILLNESS: This 89-year-old woman with past medical history of multiple medical problems admitted with acute cellulitis secondary to cat bite. The patient was treated IV antibiotics. Patient improved significantly. Patient also had creatinine worsen and multiple possibilities are considered at this time. However, our creatinine improved back to 2.82 and Infectious Disease saw the patient. Nephrology is also following the patient closely. On exam, vitals are stable. Cardiovascular: S1, S2. Abdomen: Soft. Nervous System: No focal deficits. Left leg cellulitis, improving significantly. DISCHARGE ADVICE AND MEDICATIONS: 1. Diet is cardiac. 2. Activity is limited until followup. 3. Follow up with Dr. Hortencia Strong in 2-3 days. 4. Follow up with Nephrology and as well as Infectious Disease as advised. MEDICATIONS: 1. Tylenol 650 q.6h p.r.n. 2. Norvasc 10 mg p.o. daily. 3. Augmentin 875 mg for 1 week. 4. Ecotrin 81 mg q.h.s. 5. Lipitor 40 mg daily. 6. Brimonidine timolol 1 drop both eyes. 7. Azopt 1 drop both eyes. 8. Vitamin D3 2000 daily. 9. Catapres 0.1 p.o. b.i.d. 10.Vitamin B12 1000 mcg p.o. daily. 11.Colace 100 mg p.o. daily. 12.Iron sulfate 320 mg p.o. daily. 13.Apresoline 100 mg p.o. b.i.d. 14.Lantus 40 units subcu q.h.s. 15.Imdur 30 mg p.o. daily. 16. 1 drop both eyes. 17.Xalatan 0.05% 1 drop both eyes. 18.Protonix 40 mg p.o. daily. 19.Januvia 25 mg p.o. daily. Once again the patient is being discharged in stable condition with guarded prognosis. MMODL / IJN: [id number] / MTDD
== END 2017-08-13 16:58 | disposition home health service (06) | DRG 602 ==
LOC: EC 17:06 → 4MS4W 19:34
PROVIDERS: ADMIT Hospitalist; ATTEND Hospitalist
PROC: 3E0234Z Introduction of Serum, Toxoid and Vaccine into Muscle, Percutaneous Approach (ICD-10-PCS; principal; 2017-08-09)
DX: L03.116 Cellulitis of left lower limb (principal); N17.0 Acute kidney failure with tubular necrosis; E27.40 Unspecified adrenocortical insufficiency; I13.0 Hypertensive heart and chronic kidney disease with heart failure and stage 1 through stage 4 chronic kidney disease, or unspecified chronic kidney disease; N12 Tubulo-interstitial nephritis, not specified as acute or chronic; D63.1 Anemia in chronic kidney disease; I25.10 Atherosclerotic heart disease of native coronary artery without angina pectoris; E11.22 Type 2 diabetes mellitus with diabetic chronic kidney disease; Z66 Do not resuscitate; N18.3 Chronic kidney disease, stage 3 (moderate); T36.95XA Adverse effect of unspecified systemic antibiotic, initial encounter; I25.2 Old myocardial infarction; K21.9 Gastro-esophageal reflux disease without esophagitis; R53.1 Weakness; R32 Unspecified urinary incontinence; H91.92 Unspecified hearing loss, left ear; D72.829 Elevated white blood cell count, unspecified; I50.9 Heart failure, unspecified; E61.1 Iron deficiency; M19.90 Unspecified osteoarthritis, unspecified site; E78.5 Hyperlipidemia, unspecified; H40.9 Unspecified glaucoma; H35.30 Unspecified macular degeneration; Z98.42 Cataract extraction status, left eye; Z98.41 Cataract extraction status, right eye; Z86.73 Personal history of transient ischemic attack (TIA), and cerebral infarction without residual deficits; Z80.3 Family history of malignant neoplasm of breast; Z95.1 Presence of aortocoronary bypass graft; Z79.82 Long term (current) use of aspirin; Z79.899 Other long term (current) drug therapy; Z88.2 Allergy status to sulfonamides; Z79.4 Long term (current) use of insulin; Z23 Encounter for immunization; Z98.51 Tubal ligation status; Z90.49 Acquired absence of other specified parts of digestive tract; Z87.440 Personal history of urinary (tract) infections; Z87.81 Personal history of (healed) traumatic fracture; Z96.652 Presence of left artificial knee joint; Z96.643 Presence of artificial hip joint, bilateral; Z86.69 Personal history of other diseases of the nervous system and sense organs; Z96.0 Presence of urogenital implants; W55.01XA Bitten by cat, initial encounter; W55.03XA Scratched by cat, initial encounter
CPT/HCPCS: 36415; 80048; 80053; 80202; 81001; 82728; 83036; 83540; 83550; 83605; 84550; 85025; 87040; 90471; 90715; 96365; 96366; 96375; 99285